=== PATIENT | male | born 1990 | race Caucasian/White ===

== ENCOUNTER → 2020-03-07 | Outpatient (CLI) | payer BC ==
--- NOTE | 2020-03-07 19:34 | XR ---
EXAMINATION TYPE: XR lumbosacral spine min 4V DATE OF EXAM: 03/07/2020 COMPARISON: None HISTORY: Low back pain and lumbago TECHNIQUE: I view lumbar spine FINDINGS: There 5 lumbar-type vertebral bodies. The pedicles are intact. The L5-S1 disc height is luis rowed. Remaining disc heights are preserved. Vertebral body heights are preserved. Vertebral table christiano dy alignment is normal. IMPRESSION: 1. Degenerative disc changes L5-S1.
== END | disposition home or self-care (01) ==
LOC: RADXRYALE 16:33
PROVIDERS: ATTEND Physician Assistant Medical
DX: M51.37 Other intervertebral disc degeneration, lumbosacral region (principal)
CPT/HCPCS: 72110

== ENCOUNTER → 2020-08-22 | Outpatient (CLI) | payer BC ==
--- NOTE | 2020-08-23 08:50 | CT ---
EXAMINATION TYPE: CT abdomen pelvis wo con DATE OF EXAM: 08/22/2020 HISTORY: Left side flank and inguinal pain. CT DLP: 214.7 mGycm. Automated Exposure Control for Dose Reduction was Utilized. TECHNIQUE: CT scan of the abdomen and pelvis is performed without oral or IV contrast. COMPARISON: NONE FINDINGS: Within the limitations of a non-contrast study, the following observations are made. LUNG BASES: No significant abnormality is appreciated. LIVER/GB: Prominent right hepatic lobe. Contracted gallbladder PANCREAS: No significant abnormality is seen. SPLEEN: No significant abnormality is seen. ADRENALS: No significant abnormality is seen. KIDNEYS: No renal stones or hydronephrosis seen bilaterally. BOWEL: Suboptimal evaluation without enteric contrast. No suspicious small or large bowel dilatation. . GENITAL ORGANS: Central calcifications in a normal size prostate. Single calcified left pelvic phlebo lith in pelvis axial image 106. LYMPH NODES: No greater than 1cm abdominal or pelvic lymph nodes are appreciated. OSSEOUS STRUCTURES: Btna-kb-jeopnftx disc space narrowing L5-S1 level. Posterior spur disc complex ef faces the anterior thecal sac sagittal image 53 and axial image 74. OTHER: No significant additional abnormality is seen. IMPRESSION: No renal stones or hydronephrosis is seen bilaterally. No acute findings identified.
== END | disposition home or self-care (01) ==
LOC: RADCTMAIN 16:06
PROVIDERS: ATTEND Family Medicine
DX: M54.5 Low back pain (principal); R35.0 Frequency of micturition; N20.0 Calculus of kidney
CPT/HCPCS: 74176

== ENCOUNTER → 2023-01-01 | Outpatient (CLI) | payer BC ==
--- NOTE | 2023-01-01 10:32 | CT ---
EXAMINATION TYPE: CT sinus wo con DATE OF EXAM: 01/01/2023 COMPARISON: Sinus CT February 07, 2015 HISTORY: Chronic sinusitis and right sided facial pressure with headaches. CT DLP: 642.5 mGycm. Automated Exposure Control for Dose Reduction was Utilized. TECHNIQUE: CT scan of the sinuses is performed without contrast, axial images are obtained, coronal r eformatted images are also reviewed. FINDINGS: Focal 8 mm mucosal thickening anterior left maxillary sinus is now present. Mild mucosal th ickening in the anterior ethmoid sinuses bilaterally is present. No suspicious dependent fluid or pat mac opacification The ostiomeatal complex is patent bilaterally on coronal image 20. Visualized portion of mastoid air cells show no abnormal opacification. The globes are intact bilate rally. Visualized brain parenchyma is unremarkable. IMPRESSION: Mild chronic paranasal sinus disease. No acute sinusitis currently.
== END | disposition home or self-care (01) ==
LOC: RADCTMAIN 09:21
PROVIDERS: ATTEND Otolaryngology
DX: J34.89 Other specified disorders of nose and nasal sinuses (principal); J32.9 Chronic sinusitis, unspecified
CPT/HCPCS: 70486